=== PATIENT | female | born 1975 | race Caucasian/White ===

== ENCOUNTER → 2018-04-26 | Outpatient (CLI) | payer OTHER ==
[~2018-04-26] MED LIST: NONE PER PT
[2018-04-26 10:33] LABS: HEMOGRAM NOTE RECHECKED; MEAN PLATELET VOLUME 8.5 fL (7.4-10.4); PLATELET COUNT 279 x10^3/uL (130-400); RED BLOOD COUNT 4.55 x10^6/uL (3.82-5.3); RED CELL DISTRIBUTION WIDTH 21.3 % (9.6-15.2)
[2018-04-26 10:37] LABS: INTERNATIONAL NORMALIZED RATIO 0.97 (0.93-1.1); PROTHROMBIN TIME 10.3 Seconds (9.6-11.5)
[2018-04-26 11:19] LABS: MEAN CORPUSCULAR HGB CONC 29.4 g/dL (32.4-35.8)
[2018-04-26 11:22] LABS: MD MORPH REVIEW ONLY
[2018-04-26 11:23] LABS: BASOPHILS # (AUTO) 0.06 x10^3/uL (0-0.1); BASOPHILS % (AUTO) 1 % (0-1); EOSINOPHILS # (AUTO) 0.34 x10^3/uL (0-0.4); EOSINOPHILS % (AUTO) 3 % (1-7); LYMPHOCYTES # (AUTO) 2.34 x10^3/uL (1-3.4); LYMPHOCYTES % (AUTO) 23 % (22-44); MONOCYTES # (AUTO) 0.66 x10^3/uL (0.2-0.8); MONOCYTES % (AUTO) 6 % (2-9); NEUTROPHILS # (AUTO) 6.87 x10^3/uL (1.8-6.8); NEUTROPHILS % (AUTO) 67 % (42-75)
[2018-04-26 11:24] LABS: ANISOCYTOSIS 2+; HYPOCHROMIA 2+; MICROCYTOSIS 3+; POLYCHROMASIA 1+
[2018-04-26 11:25] LABS: <PLATELET ESTIMATE> ADEQUATE; LARGE PLATELETS 1+; STOMATOCYTES 1+
[2018-04-26 11:26] LABS: OVALOCYTES 1+
== END | disposition home or self-care (01) ==
LOC: STAR 09:38
PROVIDERS: ATTEND Specialist
DX: N93.8 Other specified abnormal uterine and vaginal bleeding (principal); N85.00 Endometrial hyperplasia, unspecified; D25.9 Leiomyoma of uterus, unspecified
CPT/HCPCS: 36415; 85025; 85610; 85730

== ENCOUNTER 2018-05-02 05:37 | Inpatient (IN) | payer OTHER ==
[~2018-05-02] VITALS: Ht 165.1 cm; Wt 87.2 kg
[2018-05-02] MEDS ORDERED: LACTATED RINGERS 1,000 ML IV SCH (06:18)
[2018-05-02] MEDS ORDERED: LIDOCAINE-MPF 1%, 2ML INFIL ONE (06:30)
[2018-05-02 06:55] LABS: HCG UR SG 1.022 (1.003-1.030)
[2018-05-02] MEDS ORDERED: FLUORESCEIN SODIUM 500 MG/5 ML ONE (07:03)
[2018-05-02] MEDS ORDERED: BUPIVACAINE/PF 0.25% ONE (07:03)
[2018-05-02] MEDS ORDERED: EPINEPHRINE 1 MG/ML, 1ML ONE (07:04)
[2018-05-02] MEDS ORDERED: FENTANYL PF 250 MCG/5ML ONE (07:24)
[2018-05-02 07:26] LABS: MEAN CORPUSCULAR HEMOGLOBIN 17.7 pg (27.0-34.8); MEAN PLATELET VOLUME 10.7 fL (7.4-10.4); PLATELET COUNT 373 x10^3/uL (130-400)
[2018-05-02 07:30] LABS: ANISOCYTOSIS 2+; BASOPHILS # (AUTO) 0.09 x10^3/uL (0-0.1); BASOPHILS % (AUTO) 1 % (0-1); EOSINOPHILS # (AUTO) 0.23 x10^3/uL (0-0.4); EOSINOPHILS % (AUTO) 2 % (1-7); HYPOCHROMIA 2+; LYMPHOCYTES # (AUTO) 2.28 x10^3/uL (1-3.4); LYMPHOCYTES % (AUTO) 24 % (22-44); MD MORPH REVIEW ONLY; MICROCYTOSIS 3+; MONOCYTES # (AUTO) 0.43 x10^3/uL (0.2-0.8); MONOCYTES % (AUTO) 5 % (2-9); NEUTROPHILS # (AUTO) 6.57 x10^3/uL (1.8-6.8); NEUTROPHILS % (AUTO) 68 % (42-75); OVALOCYTES 1+; POLYCHROMASIA 1+; STOMATOCYTES 1+
[2018-05-02] MEDS ORDERED: HYDROmorphone 2 MG/ML, 1ML IVPush PRN (07:30)
[2018-05-02] MEDS ORDERED: HALOPERIDOL 5 MG/ML IV PRN (07:30)
[2018-05-02] MEDS ORDERED: hydrALAzine 20 MG/ML, 1ML IV PRN (07:30)
[2018-05-02] MEDS ORDERED: METOPROLOL 1 MG/ML, 5ML IV PRN (07:30)
[2018-05-02] MEDS ORDERED: SCOPOLAMINE PATCH, 1.5MG PATCH.TD72 TD ONE (07:30)
[2018-05-02] MEDS ORDERED: KETOROLAC 30 MG/1 ML ONE (07:30)
[2018-05-02] MEDS ORDERED: DEXAMETHASONE 4 MG/ML, 1ML ONE (07:30)
[2018-05-02] MEDS ORDERED: OXYcodone 5 MG/5 ML ORAL.SOL UDC PO PRN (07:30)
[2018-05-02] MEDS ORDERED: ACETAMINOPHEN 500 MG TABLET PO ONE (07:30)
[2018-05-02] MEDS ORDERED: PROCHLORPERAZINE 5 MG/ML, 2ML IV PRN (07:30)
[2018-05-02] MEDS ORDERED: LABETALOL 5MG/ML, 20ML IV PRN (07:30)
[2018-05-02] MEDS ORDERED: PROMETHAZINE 25 MG/ML, 1ML IV PRN (07:30)
[2018-05-02] MEDS ORDERED: MEPERIDINE/PF 25MG/0.5ML IVPush PRN (07:30)
[2018-05-02] MEDS ORDERED: GABAPENTIN 300 MG CAPSULE PO ONE (07:30)
[2018-05-02] MEDS ORDERED: DIPHENHYDRAMINE 50 MG/ML, 1ML IVPush PRN (07:30)
[2018-05-02 07:31] LABS: <PLATELET ESTIMATE> ADEQUATE; LARGE PLATELETS 1+
[2018-05-02] MEDS ORDERED: GLYCOPYRROLATE 0.2MG/1ML, 5ML ONE (09:19)
[2018-05-02] MEDS ORDERED: SUCCINYLCHOLINE 20 MG/ML, 10ML ONE (09:19)
[2018-05-02] MEDS ORDERED: CEFAZOLIN 1,000 MG ONE (09:19)
[2018-05-02] MEDS ORDERED: ROCURONIUM 10MG/ML,5ML ONE (09:19)
[2018-05-02] MEDS ORDERED: NEOSTIGMINE 1 MG/ML, 10ML ONE (09:19)
[2018-05-02] MEDS ORDERED: ONDANSETRON 2MG/ML, 2ML ONE (09:19)
[2018-05-02] MEDS ORDERED: PROPOFOL 10 MG/ML, 20ML ONE (09:19)
[2018-05-02] MEDS ORDERED: OXYcodone 5 MG/5 ML ORAL.SOL UDC ONE (10:08)
[2018-05-02] MEDS ORDERED: FENTANYL PF 100 MCG/2ML ONE (10:14)
[2018-05-02] MEDS: FENTANYL PF 100 MCG/2ML IV PRN ×2 (10:17→10:28)
[2018-05-02 10:45] VITALS: BP 104/61
[2018-05-02] MEDS ORDERED: OXYcodone/APAP 5/325MG TABLET PO PRN (12:00)
[2018-05-02] MEDS ORDERED: KETOROLAC 30 MG/1 ML IV PRN (12:00)
[2018-05-02] MEDS ORDERED: BISACODYL 10 MG SUPP PR PRN (12:00)
[2018-05-02] MEDS ORDERED: ONDANSETRON 2MG/ML, 2ML IV PRN (12:00)
[2018-05-02] MEDS ORDERED: MEPERIDINE/PF 100 MG/ML IM PRN (12:00)
[2018-05-02] MEDS ORDERED: HYDROmorphone 2 MG/ML, 1ML IV PRN (12:00)
[2018-05-02] MEDS ORDERED: HYDROcodone/APAP 5/325 TABLET PO PRN (12:30)
[2018-05-02] MEDS: D5%-LACTATED RINGERS 1,000 ML IV SCH ×2 (12:57→19:12)
[2018-05-02] MEDS ORDERED: CEFAZOLIN PMX 2GM/50ML 50 ML IVPB SCH (15:00)
[2018-05-02] MEDS: SIMETHICONE 80 MG CHEW TAB PO SCH ×2 (15:39→20:42)
[2018-05-02 15:40] VITALS: BP 118/70
[2018-05-02] MEDS: KETOROLAC 30 MG/1 ML IV SCH ×2 (17:36→23:57)
[2018-05-02 18:46] VITALS: BP 104/57
[2018-05-02] MEDS ORDERED: SENNA/DOCUSATE TABLET PO SCH (21:00)
[2018-05-02] MEDS ORDERED: ZOLPIDEM 5MG TABLET PO PRN (21:00)
[2018-05-02] MEDS ORDERED: FLURAZEPAM 15 MG CAPSULE PO PRN (21:00)
[2018-05-02] MEDS ORDERED: DOCUSATE 100 MG CAPSULE PO SCH (21:00)
[2018-05-03 00:12] VITALS: BP 100/61
[2018-05-03] MEDS: D5%-LACTATED RINGERS 1,000 ML IV SCH (04:00)
[2018-05-03] MEDS: KETOROLAC 30 MG/1 ML IV SCH (05:40)
[2018-05-03 06:45] VITALS: BP 99/55
[2018-05-03] MEDS: SIMETHICONE 80 MG CHEW TAB PO SCH (08:20)
[2018-05-03] MEDS ORDERED: HYDR-3240 PO (08:53)
[2018-05-03] MEDS ORDERED: IBUP200T49 PO (08:54)
[2018-05-03] MEDS ORDERED: KETOROLAC 30 MG/1 ML IVPush PRN (12:30)
[2018-05-03] MEDS ORDERED: IBUPROFEN 600 MG TABLET PO SCH (14:00)
== END 2018-05-03 10:30 | disposition home or self-care (01) | DRG 743 ==
LOC: OUT 05:37 → 4NOR 10:40 → OUT 10:46 → 4NOR 10:47 → DCLOUNGE 05-03 10:18
PROVIDERS: ADMIT Specialist; ATTEND Specialist
PROC: 0UT97ZZ Resection of Uterus, Via Natural or Artificial Opening (ICD-10-PCS; principal; 2018-05-02 07:30)
DX: D25.9 Leiomyoma of uterus, unspecified (principal); D50.0 Iron deficiency anemia secondary to blood loss (chronic)
CPT/HCPCS: 36415; J3490; J7121; 81025; 85014; 85018; 85025; 86850; 86900; 86923; 88307; G0378; J0171; J0690; J1100; J1885; J2405; J2704; J2710; J3010; J0330; J7120